=== PATIENT | female | born 1990 | race Caucasian/White ===

== ENCOUNTER → 2019-01-11 | Outpatient (CLI) | payer BC ==
--- NOTE | 2019-01-11 16:34 | RAD ---
Examination: BREAST RIGHT History: pt states she had a mammo and sonogram of rt breast when she was 16 or 18 yrs of age.
pt states it hasn't gotten bigger in all these years Comparison/Correlation: None Findings: Limited right breast ultrasound at 2:00 region a centimeter from the nipple was performed. There is a well-circumscribed isoechoic ovoid mass measuring 2.6 cm x 2.8 cm x 1.2 cm tall. No flow within it. Impression: BI-RADS Category 3 probably benign. 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 Six-month follow-up to assess stability recommended by ultrasound. Electronically signed by: Brett Crowley MD (01/11/2019 4:31 PM) [facility]
== END | disposition home or self-care (01) ==
LOC: US 13:54
PROVIDERS: ATTEND Obstetrics & Gynecology
DX: N63.10 Unspecified lump in the right breast, unspecified quadrant (principal)
CPT/HCPCS: 76641